=== PATIENT | female | born 1955 ===

== ENCOUNTER 2022-02-25 09:00 | Outpatient (RCR) | payer OTHER, SELFPAY | END 2022-04-01 14:34 | disposition home or self-care (01) | LOC: HO.PT 09:00 | PROVIDERS: Visit Provider Obstetrics & Gynecology | DX: R10.2 Pelvic and perineal pain (principal); M62.9 Disorder of muscle, unspecified | CPT/HCPCS: 97112; 97140; 97162; 97530 ==